=== PATIENT | female | born 1955 | race Caucasian/White ===

== ENCOUNTER → 2016-10-04 16:56 | Outpatient (CLI) | payer MEDICARE | END | disposition home or self-care (01) | LOC: D.MAMMO 09-16 15:00 | DX: Z12.31 Encounter for screening mammogram for malignant neoplasm of breast (principal) ==

== ENCOUNTER 2017-02-08 13:41 | Outpatient (CLI) | payer MEDICARE ==
[~2017-02-08] VITALS: Ht 147.3 cm; Wt 65.9 kg
[2017-02-08 14:19] VITALS: BP 132/69; Ht 147.3 cm; Wt 65.9 kg
--- NOTE | 2017-02-08 14:47 | NUR ---
1350 AMBULATORY TO 2506. Moreno Yee.N. 1407 PROLIA INJECTION TO RIGHT ARM. PT ASSESSMENT & HISTORY BEGUN. Moreno DE LUNA R.N. 1430 PT AWAKE & ALERT WITH NO COMPLAINTS. RESPIRATIONS REGULAR & UNLABORED. ASSESSMENT & HISTORY COMPLETED. Moreno Yee.N. 1435 DISCHARGE INSTRUCTIONS INCLUDING 2 PROLIA HANDOUTS REVIEWED WITH PT. PT VOICED UNDERSTANDING. RELEASED AMBULATORY FROM UNIT WITHI Reggie HURT. Moreno DE LUNA R.N.
== END 2017-02-08 14:35 | disposition home or self-care (01) ==
LOC: D.OPS 13:41
DX: M81.0 Age-related osteoporosis without current pathological fracture (principal)

== ENCOUNTER 2017-10-13 09:53 | Outpatient (CLI) | payer MEDICARE ==
[~2017-10-13] VITALS: Ht 147.3 cm; Wt 67.3 kg
[2017-10-13 10:24] VITALS: BP 125/83; Ht 147.3 cm; Wt 67.3 kg
== END 2017-10-13 10:40 | disposition home or self-care (01) ==
LOC: D.OPS 09:53
DX: M81.0 Age-related osteoporosis without current pathological fracture (principal)

== ENCOUNTER → 2018-04-07 08:00 | Outpatient (CLI) | payer MEDICARE ==
[2017-10-13 10:24] VITALS: BMI 31.0
== END | disposition home or self-care (01) ==
LOC: D.MAMMO 08:00
DX: Z12.31 Encounter for screening mammogram for malignant neoplasm of breast (principal)

== ENCOUNTER 2018-06-08 12:05 | Outpatient (CLI) | payer MEDICARE ==
[~2018-06-08] VITALS: Ht 147.3 cm; Wt 67.3 kg
[2018-06-08 12:59] VITALS: BP 137/71; Ht 147.3 cm; Wt 67.3 kg
== END 2018-06-08 13:05 | disposition home or self-care (01) ==
LOC: D.OPS 12:05
PROVIDERS: ATTEND Emergency Medicine
DX: M81.0 Age-related osteoporosis without current pathological fracture (principal)

== ENCOUNTER 2019-10-10 11:45 | Outpatient (CLI) | payer MEDICARE ==
[2018-06-08 12:59] VITALS: BMI 31.0
== END 2019-10-12 12:45 | disposition home or self-care (01) ==
LOC: D.MAMMO 11:45
PROVIDERS: ATTEND Emergency Medicine
DX: Z12.31 Encounter for screening mammogram for malignant neoplasm of breast (principal)